=== PATIENT | female | born 1960 | race Caucasian/White ===

== ENCOUNTER → 2016-04-09 | Outpatient (CLI) | payer BC ==
[~2016-04-09] MED LIST: ACET-749 PO; AIRBORNE PO; CYCL10TA6 PO; IBUP-1050 PO
--- NOTE | 2016-04-10 07:38 | MAMMOGRAPHY REPORT ---
BILATERAL DIGITAL SCREENING MAMMOGRAM TOMOSYNTHESIS WITH CAD: 04/09/2016 CLINICAL HISTORY: Routine screening. Patient has no complaints. TECHNIQUE: Breast tomosynthesis in addition to standard 2D mammography was performed. Current study was also evaluated with a Computer Aided Detection (CAD) system. COMPARISON: Comparison is made to exams dated: 04/03/2015 mammogram, 09/24/2010 mammogram, 08/15/2009 m ammogram, 11/16/2013 mammogram, 11/04/2012 mammogram, and 09/29/2011 mammogram - [facility] [address]. BREAST COMPOSITION: There are scattered areas of fibroglandular density in both breasts. FINDINGS: No suspicious masses, calcifications, or areas of architectural distortion are noted in e ither breast. There has been no significant interval change compared to prior exams. Fluctuating ci rcumscribed benign-appearing masses are again noted bilaterally, with corresponding cysts seen on pr ior ultrasound exams. Bilateral benign-appearing calcifications are stable. IMPRESSION: ACR BI-RADS CATEGORY 2: BENIGN There is no mammographic evidence of malignancy. A 1 year screening mammogram is recommended. The p atient will receive written notification of the results. Approximately 10% of breast cancers are not detected with mammography. A negative mammographic repor t should not delay biopsy if a clinically suggestive mass is present. Geovanna Stoddard M.D. /:04/09/2016 15:54:19 Cotton Program Technician: Maria Del Rosario YOUSSEF(Rosa Isela)(M), [facility] [address] letter sent: Normal 1/2 BI-RADS Code: ACR BI-RADS Category 2: Benign
== END | disposition home or self-care (01) ==
LOC: C.MAMM 15:34
DX: Z12.31 Encounter for screening mammogram for malignant neoplasm of breast (principal)

== ENCOUNTER → 2016-06-19 | Outpatient (CLI) | payer BC ==
--- NOTE | 2016-06-19 13:11 | MAMMOGRAPHY REPORT ---
ASPIRATION LEFT BREAST: 06/19/2016 CLINICAL HISTORY: Left 1:00 breast cyst with associated tenderness and prior erythema. PATIENT CONSENT: The procedure and risks of ultrasound-guided cyst aspiration were discussed in full with the patient. Both oral and written consents were obtained. PROCEDURE DESCRIPTION: With ultrasound guidance, aseptic technique, and 1% lidocaine as a local anes thetic, the mass of concern in the left 1:00 breast was aspirated to completion. Brownish yellow fl uid was aspirated and sent to cytology for analysis. Direct pressure was applied to the site immedi ately post procedure and hemostasis was achieved. The patient tolerated the procedure without compl ication. She was given wound care instructions. COMPARISON: Comparison is made to exams dated: 04/09/2016 mammogram, 04/03/2015 mammogram, 11/16/2013 mammogram, and 11/04/2012 mammogram - [facility]. IMPRESSION: ASPIRATION Ultrasound-guided aspiration of the left 1:00 breast cyst. The aspirated fluid was sent for Gram st ain and culture as well as cytology to exclude the possibility of an infected cyst/abscess. The pat ient will receive pathology results from her referring physician. Geovanna Stoddard M.D. /:06/19/2016 11:13:16 Resident Caregiver: Maria Del Rosario Rodriguez, [facility]
--- NOTE | 2016-06-19 13:11 | MAMMOGRAPHY REPORT ---
UNILATERAL LEFT DIGITAL DIAGNOSTIC MAMMOGRAM TOMOSYNTHESIS WITH CAD AND TARGETED LEFT ULTRASOUND: CLINICAL HISTORY: The patient reports a palpable tender lump in the left breast since Wednesday evening , with associated erythema of the overlying skin. The patient was placed on antibiotics and the red ness has resolved, however, she still feels a lump and some tenderness. TECHNIQUE: Breast tomosynthesis in addition to standard 2D mammography was performed. Current study was also evaluated with a Computer Aided Detection (CAD) system. Left CC and MLO 2-D and tomosynth esis images were obtained. COMPARISON: Comparison is made to exams dated: 04/09/2016 mammogram, 04/03/2015 mammogram, 11/16/2013 mammogram, 11/04/2012 ultrasound, 11/04/2012 mammogram, and 09/29/2011 ultrasound - [facility]. BREAST COMPOSITION: There are scattered areas of fibroglandular density in the left breast. FINDINGS: A triangle marker [place] the site of the palpable tender lump in the left upper outer quadr ant. At the site of the palpable lump there is a round circumscribed 12 mm mass, which does not giuliano ear significantly changed compared to prior exams, and is smaller in size compared to the 2012 exam. The remainder of the left breast is stable compared to prior exams, without suspicious masses, ruddy cifications, or areas of architectural distortion noted. Scattered benign-appearing calcifications are stable. Targeted ultrasound was performed of the area of the tender palpable lump, in the left breast at giuliano roximately 1:00, 2 cm from the nipple. There is a round anechoic circumscribed mass which measures 10 x 9 x 10 mm at the site of the palpable lump. This corresponds with the mammographic mass and larios s the appearance of a simple cyst. However, given the clinical history, an infected cyst is not exc luded therefore ultrasound-guided aspiration is recommended. An adjacent round anechoic benign cyst is also seen measuring 4 mm. IMPRESSION: ACR BI-RADS CATEGORY 4A: LOW SUSPICION FOR MALIGNANCY, TARGETED ULTRASOUND ACR BI-RADS CATEGORY 4A: LOW SUSPICION FOR MALIGNANCY Circumscribed 10 mm anechoic mass in the left breast at 1:00, at the site of the palpable tender lum p. This has the appearance of a benign cyst, however, given the clinical history of erythema and te nderness, an infected cyst/abscess is not excluded. Therefore, recommend ultrasound guided aspirati on for further evaluation. A phone call was made to the physician's office to confirm faxed results were received. The patient was verbally notified of the results. The aspiration was performed immediately after the exam. Approximately 10% of breast cancers are not detected with mammography. A negative mammographic repor t should not delay biopsy if a clinically suggestive mass is present. Geovanna Stoddard M.D. ah/:06/19/2016 10:12:32 Dog Sitter: Maria Del Rosario Rodriguez, [facility] BI-RADS Code: ACR BI-RADS Category 4A: Low Suspicion For Malignancy Ultrasound BI-RADS: ACR BI-RADS Category 4A: Low Suspicion For Malignancy
== END | disposition home or self-care (01) ==
LOC: C.MAMM 09:01
PROVIDERS: ATTEND Physician Assistant
DX: N60.02 Solitary cyst of left breast (principal)

== ENCOUNTER → 2016-08-20 | Outpatient (CLI) | payer BC | END | disposition home or self-care (01) | LOC: C.PAPS 09:56 | PROVIDERS: ATTEND Physician Assistant | DX: Z01.419 Encounter for gynecological examination (general) (routine) without abnormal findings (principal) ==

== ENCOUNTER → 2016-10-23 | Outpatient (CLI) | payer BC ==
[2016-10-23 13:21] LABS: BASO % 0.6 %; BASO ABS # 0.03 K/uL (0-0.2); COMPLETE YES; EOS % 2.3 %; HEMATOCRIT 40.4 % (37-47); IG% 0.4 %; LYMPH % 33.6 %; LYMPH ABS # 1.58 K/uL (1.2-3.4); MEAN CELL VOLUME 88.6 fL (80-100); MEAN CORPUSCULAR HEMOGLOBIN 29.2 pg (25-34); MEAN CORPUSCULAR HGB CONC 32.9 g/dl (32-36); MEAN PLATELET VOLUME 10.1 fL (7.4-10.4); MONO % 7.9 %; NEUT % 55.2 %; PLATELET COUNT 283 K/uL (130-400); RED BLOOD COUNT 4.56 M/uL (4.2-5.4)
[2016-10-23 13:59] LABS: ALT/SGPT 27 U/L (12-78); AST/SGOT 14 U/L (15-37); BLOOD UREA NITROGEN 19 mg/dl (7-18); BUN/CREATININE RATIO 27.8 (10-20); CALCIUM 9.6 mg/dl (8.5-10.1); CARBON DIOXIDE 30 mmol/L (21-32); CHLORIDE 105 mmol/L (98-107); CREATININE 0.67 mg/dl (0.60-1.20); FERRITIN 151.7 ng/ml (8.0-388.0); GLUCOSE 55 mg/dl (70-99); MAGNESIUM 2.5 mg/dl (1.8-2.4); POTASSIUM 3.9 mmol/L (3.5-5.1); SODIUM 140 mmol/L (136-145)
== END | disposition home or self-care (01) ==
LOC: C.LAB1850 11:23
DX: M19.90 Unspecified osteoarthritis, unspecified site (principal); G47.00 Insomnia, unspecified; R53.83 Other fatigue; E55.9 Vitamin D deficiency, unspecified

== ENCOUNTER → 2017-05-07 | Outpatient (CLI) | payer BC ==
--- NOTE | 2017-05-07 14:57 | MAMMOGRAPHY REPORT ---
BILATERAL DIGITAL SCREENING MAMMOGRAM TOMOSYNTHESIS WITH CAD: 05/07/2017 CLINICAL HISTORY: Routine screening. TECHNIQUE: Breast tomosynthesis in addition to standard 2D mammography was performed. Current study was also evaluated with a Computer Aided Detection (CAD) system. COMPARISON: Comparison is made to exams dated: 06/19/2016 mammogram, 04/09/2016 mammogram, 04/03/2015 m ammogram, 11/16/2013 mammogram, 11/04/2012 mammogram, and 09/29/2011 mammogram - [facility]. BREAST COMPOSITION: There are scattered areas of fibroglandular density in both breasts. FINDINGS: No suspicious masses, calcifications, or areas of architectural distortion are noted in ei ther breast. There has been no significant interval change compared to prior exams. IMPRESSION: ACR BI-RADS CATEGORY 1: NEGATIVE There is no mammographic evidence of malignancy. A 1 year screening mammogram is recommended. The pa tient will receive written notification of the results. Approximately 10% of breast cancers are not detected with mammography. A negative mammographic report should not delay biopsy if a clinically suggestive mass is present. Geovanna Stoddard M.D. ah/:05/07/2017 13:29:15 Automatic Log Cut Off Sawyer: Raciel YOUSSEF(Rosa Isela)(M), [facility] letter sent: Normal 1/2 BI-RADS Code: ACR BI-RADS Category 1: Negative
== END | disposition home or self-care (01) ==
LOC: C.MAMM 12:05
DX: Z12.31 Encounter for screening mammogram for malignant neoplasm of breast (principal)